=== PATIENT | male | born 1990 | race Caucasian/White ===

== ENCOUNTER 2017-09-21 02:26 | Emergency (ER) | payer OTHER ==
[~2017-09-21] VITALS: Ht 180.3 cm; Wt 89.1 kg
[2017-09-21 02:29] VITALS: BP 138/85; PULSE 98; TEMP 97.1
[2017-09-21 03:04] LABS: BASO % 0.3 % (0.0-2.0); EOS # 0.1 (0.0-0.7); EOS % 1.4 % (0-4.0); GRAN # 2.7 (1.4-6.5); GRAN % 43.6 % (42.2-75.2); HEMATOCRIT 43.1 % (42.0-52.0); HEMOGLOBIN 15.2 g/dl (13.5-18.0); LYMPH % 48.3 % (20.0-51.0); MEAN CELL VOLUME 91 fl (80.0-100.0); MEAN CORPUSCULAR HEMOGLOBIN 32 pg (27.0-31.0); MEAN CORPUSCULAR HGB CONC 35 g/dl (33.0-37.0); MEAN PLATELET VOLUME 11.3 fl (7.4-10.4); MONO # 0.4 (0.1-0.6); MONO % 6.2 % (1.7-9.3); PLATELET COUNT 168 K/mm3 (130-400); RED BLOOD COUNT 4.76 M/mm3 (4.20-5.60); REDCELL DISTRIBUTION WIDTH-CV 11.4 % (11.5-14.5)
[2017-09-21 03:13] LABS: CALCIUM 9.2 mg/dL (8.4-10.2); CREATININE, serum 1.18 mg/dL (0.66-1.25); POTASSIUM 3.8 mmol/L (3.4-5.0)
[2017-09-21] MEDS ORDERED: PEPCID 20MG TAB20 MG PO (03:33)
== END 2017-09-21 04:05 | disposition home or self-care (01) ==
LOC: COL.ER 02:26
PROVIDERS: Emergency Medicine
DX: S10.11XA Abrasion of throat, initial encounter (principal); X58.XXXA Exposure to other specified factors, initial encounter
CPT/HCPCS: C9113; J2765; J7030; Q9967

== ENCOUNTER 2018-06-16 13:55 | Emergency (ER) | payer OTHER ==
[~2018-06-16] VITALS: Ht 180.3 cm; Wt 93.6 kg
[~2018-06-16 13:55] MED LIST: PEPCID 20MG TAB20 MG PO
[2018-06-16 13:57] VITALS: BP 130/77; TEMP 99.2
[2018-06-16] MEDS ORDERED: IBU800 M1 PO (14:03)
[2018-06-16] MEDS ORDERED: CEPHALEXIN500 M1 PO (14:23)
[2018-06-16 14:37] VITALS: PULSE 69
== END 2018-06-16 14:37 | disposition home or self-care (01) ==
LOC: COL.ER 13:55
DX: S41.011D Laceration without foreign body of right shoulder, subsequent encounter (principal); F17.210 Nicotine dependence, cigarettes, uncomplicated; X58.XXXD Exposure to other specified factors, subsequent encounter